=== PATIENT | female | born 1950 | race Caucasian/White ===

== ENCOUNTER 2017-10-08 11:58 | Outpatient (RCR) | payer MEDICARE, SELFPAY ==
--- NOTE | 2017-10-08 17:35 | PT.OTN ---
Addendum entered and electronically signed by Shameka Hicks, PT 10/08/17 17:47: Transition note: On October 05, 2017 our therapy services consisting of Speech, Occupational, and Physical Therapy transitioned from the [employer] electronic documentation system to a new [employer] electronic documentation system.?? All documentation prior to October 05 can be found under [employer] saved data. From October 05 forward all medical record documentation will be in [employer]. Original Note: Current Diagnoses Impingement syndrome of right shoulder (10/08/17) Physical Therapy Treatment Note PT-OP-A Visit Information Start: 10/08/17 11:59 Freq: Status: Active Protocol: Activity Type Activity Date Activity User E-Sign Co-Sign Detail Recorded Client Recorded Date Recorded By Document 10/08/17 12:45 [facility] [email or web address] 10/08/17 17:34 [facility] 10/08/17 12:45 Out-Patient Physical Therapy Visit Information [Visit Information] -Visit Type Treatment Note -Visit Start Time 12:00 -Visit Stop Time 12:45 -Total Visit Minutes 45 -Visit Number 11 -Number of FIELD TRAINING MANAGER Visits 0 [Evaluation Information] -Evaluation Date 08/12/17 PT-OP-C Subjective Start: 10/08/17 11:59 Freq: Status: Active Protocol: Activity Type Activity Date Activity User E-Sign Co-Sign Detail Recorded Client Recorded Date Recorded By Document 10/08/17 12:45 [facility] [email or web address] 10/08/17 17:34 [facility] 10/08/17 12:45 OP-PT Subjective [Patient Comments] -Patient Comments Pt notes that she has no more soreness after painting her fence last week . Overall, she feels like she has improved since evaluation with less pain in the R shoulder. -Patient Reported Progress Improving PT-OP-Q Treatments Start: 10/08/17 11:59 Freq: Status: Active Protocol: Activity Type Activity Date Activity User E-Sign Co-Sign Detail Recorded Client Recorded Date Recorded By Document 10/08/17 12:45 [facility] [email or web address] 10/08/17 17:34 [facility] 10/08/17 12:45 Therapeutic Exercises [Standing Exercises] 4 -Standing Exercise Name Shoulder ER -Side bilateral -Resistance L1 theraband -Reps/Minutes 1x10 3 -Standing Exercise Name Rows -Side bilateral -Resistance L2 theraband -Reps/Minutes 1x20 2 -Standing Exercise Name Shoulder extension -Side bilateral -Resistance L2 theraband -Reps/Minutes 1x20 1 -Standing Exercise Name Shoulder: abduction, scaption, flexion -Side right -Resistance 1 and 2 lbs, L1 band -Reps/Minutes 1 set of 10 each position with each resistance level -Comments 12 minutes Manual Therapy Treatment [Soft Tissue Mobilization] 2 -Body Location Supraspinatus ( R) -Mobilization Type Cross-Friction -Intensity/Depth Moderate -Body Position Sitting -Comments 5 min. 1 -Body Location Biceps brachii (R) -Mobilization Type Rolling -Intensity/Depth Moderate -Body Position Sitting -Comments 5 min. [Joint Mobilizations] 1 -Joint Scapulothoracic (R) -Direction superior, lateral -Grade IV -Body Position Sidelying -Comments 5 min. PT-OP-R Modalities Start: 10/08/17 11:59 Freq: Status: Active Protocol: Activity Type Activity Date Activity User E-Sign Co-Sign Detail Recorded Client Recorded Date Recorded By Document 10/08/17 12:45 [place] [id number] 10/08/17 17:34 [facility] 10/08/17 12:45 Hot Pack/Cold Pack [Treatment] Cold Pack -Location R shoulder -Patient Position Supine -Treatment Duration (minutes) 10 -Patient Tolerance Good -Comments bolster PT-OP-T Assessment and Plan Start: 10/08/17 11:59 Freq: Status: Active Protocol: Activity Type Activity Date Activity User E-Sign Co-Sign Detail Recorded Client Recorded Date Recorded By Document 10/08/17 12:45 [facility] [email or web address] 10/08/17 17:34 [facility] 10/08/17 12:45 Physical Therapy Assessment [Assessment Summary] -Assessment Pt tolerated increased resistance with shoulder strengthening, without c/o pain. Pt appears to fatigue most rapidly with R shoulder flexion. Pt is nearing toward prior level of function, and unless significant worsening of symptoms plan to d/c over the next 2-3 weeks . Physical Therapy Plan [Frequency and Duration] -Frequency of Treatment 2x/Week -Duration of Treatment 4 weeks -Plan of Care Start Date 10/01/17 -Plan of Care End Date 10/22/17 [Next Visit Focus/Plan] -Next Visit Plan continue to progress HEP for shoulder strengthening ( deltoid, RTC, scapular).
--- NOTE | 2017-12-17 09:12 | PT.OPDS ---
Current Diagnoses Impingement syndrome of right shoulder (10/08/17) Provider Visit Care Team Role Provider Type Tabatha Rodríguez MD Attending Provider Physician Specialty: BRICK BURNER Address: [address] [place] [address], [facility] Email: Visit Number Visit Number 11 Discharge Summary PT-OP-C Subjective Start: 10/08/17 11:59 Freq: Status: Active Protocol: Document 12/17/17 09:08 [facility] [address] (Rec: 12/17/17 09:12 [facility] [id number]) OP-PT Subjective Patient Comments Patient Comments Pt did not call back with any complaints post-previous session. PT-OP-T Assessment and Plan Start: 10/08/17 11:59 Freq: Status: Active Protocol: Document 12/17/17 09:08 [facility] [facility] (Rec: 12/17/17 09:12 [facility] [id number]) Physical Therapy Assessment Assessment Summary Assessment Final PT session was on October 08, 2017, pt was nearing her prior level of function. She demonstrated increased tolerance to resistance training, but still fatiguing most rapidly with shoulder flexion due to weakness of the anterior deltoid. Pt was able to perform daily home tasks without complaints, and now has an established HEP that pt is independent in performing and has an excellent understanding of safety with these activities. Pt overall attended 11 physical therapy visits, and did not return for further assessment and treatment beyond October 08, 2017. Objective measures unable to be obtained due to pt not returning for a final assessment. Pt will be discharged to [facility]. HEP. Physical Therapy Plan Discharge Physical Therapy Discharge Reasons No Longer Attending PT
== END 2018-05-09 12:48 ==
LOC: PHYS 11:58
PROVIDERS: Visit Provider Obstetrics & Gynecology
DX: M75.41 Impingement syndrome of right shoulder (principal)
CPT/HCPCS: 97010; 97110; 97140

== ENCOUNTER → 2020-01-27 11:02 | Outpatient (CLI) | payer MEDICARE, SELFPAY ==
--- NOTE | 2020-01-27 11:08 | DI.MRI.S_ITS ---
PROCEDURE: MR ANKLE LT WO CON INDICATIONS: Pain in left foot TECHNIQUE: Noncontrast sagittal T1 spin echo and T2 fast spin echo with fat saturation, axial proton density fast spin echo and T2 fast spin echo with fat saturation, coronal T1 spin echo and T2 fast spin echo with fat saturation through the ankle/hindfoot. COMPARISON: None. FINDINGS: Image quality: Excellent. Bones and joints: No bone marrow contusions or fractures. Incidental unfused accessory navicular noted. No hindfoot coalitions. No osteochondral injuries of the talar dome. No pathologic joint effusions. Medial structures: Posterior tibialis intact. Mild tenosynovitis of the posterior tibialis. Flexor digitorum longus intact. Flexor hallucis longus tendon intact. The posterior tibial neurovascular bundle appears normal within the tarsal tunnel, without extrinsic mass effect. Deltoid ligament complex appears intact. The spring ligament appears intact. Lateral structures: Anterior talofibular ligament intact. Calcaneofibular ligament intact. Posterior talofibular ligament intact. Anterior and posterior tibiofibular ligaments appear intact, as is the intermalleolar ligament. Tibiofibular syndesmosis is normal in width at 2 mm or less. Peroneus longus and brevis tendons appear normal. There is mild peroneal tenosynovitis. Bony peroneal tubercle and retrotrochlear prominence are normal in size. Sinus tarsi demonstrates normal fatty signal, without edema, fibrosis, or cyst formation. Anterior structures: Tibialis anterior intact. Extensor hallucis longus intact. Extensor digitorum longus tendon intact. Dorsal talonavicular ligament appears intact. Posterior and plantar structures: Achilles tendon is intact. Severe thickening, intrasubstance signal changes and adjacent soft tissue edema in keeping with medial band plantar fasciitis. No abductor digiti quinti muscle atrophy to suggest Womack neuropathy. IMPRESSION: Severe medial band plantar fasciitis. Mild posterior tibialis and peroneal tenosynovitis. Dictated by: Dell Rooney M.D. on 01/29/2020 at 8:51 Approved by: Dell Rooney M.D. on 01/29/2020 at 8:56
== END ==
PROVIDERS: PCP Internal Medicine; Referring Provider Podiatrist; Visit Provider Podiatrist
DX: M79.672 Pain in left foot (principal); M72.2 Plantar fascial fibromatosis; G57.62 Lesion of plantar nerve, left lower limb; M65.872 Other synovitis and tenosynovitis, left ankle and foot; R26.2 Difficulty in walking, not elsewhere classified
CPT/HCPCS: 73721

== ENCOUNTER → 2022-03-19 08:07 | Outpatient (CLI) | payer MEDICARE, SELFPAY ==
--- NOTE | 2022-03-19 | DI.CT.S_ITS ---
PROCEDURE: CT HEAD/BRAIN WO CON INDICATIONS: Headache, unspecified TECHNIQUE: Noncontrast 4.5 mm thick angled axial sections acquired from the foramen magnum to the vertex, with coronal and sagittal reformats. For radiation dose reduction, the following was used: automated exposure control, adjustment of mA and/or kV according to patient size. COMPARISON: None. FINDINGS: Image quality: Excellent. CSF spaces: Basal cisterns are patent. No extra-axial fluid collections. The ventricles are symmetric in size and shape. Brain: No intracranial bleeds or masses. There is cerebral volume loss for age, with resultant ventricular and sulcal prominence. There are periventricular and deep white matter chronic small vessel ischemic changes. A remote lacunar infarction versus cysts can be seen involving the left basal ganglia, as on series 2, image 12. There is intracranial internal carotid artery atherosclerosis. Skull and face: Calvarium and visualized facial bones appear intact, without suspicious lesions. Sinuses: Visualized sinuses and mastoids are clear. IMPRESSION: Unremarkable intracranial study for age, without an imaging explanation found for the patient's presenting history of headache. Dictated by: Timo Louise M.D. on 03/19/2022 at 8:45 Approved by: Timo Louise M.D. on 03/19/2022 at 8:46
== END ==
PROVIDERS: PCP Internal Medicine; Referring Provider Internal Medicine; Visit Provider Internal Medicine
DX: R51.9 Headache, unspecified (principal)
CPT/HCPCS: 70450

== ENCOUNTER 2022-03-25 10:58 | Emergency (ER) | payer MEDICARE, SELFPAY ==
[2022-03-25] VITALS (21 sets, daily range): BP systolic 141–189; BP diastolic 65–89; PULSE 62–78; RESP 15–24; TEMP 36.5; O2SAT 96–100; BMI 20.5
--- NOTE | 2022-03-25 12:53 | DI.CT.S_ITS ---
PROCEDURE: CT HEAD/BRAIN WO CON INDICATIONS: PADRON since 03/19/2022, on thinners, left side weakness numbnes TECHNIQUE: Noncontrast 4.5 mm thick angled axial sections acquired from the foramen magnum to the vertex, with coronal and sagittal reformats. For radiation dose reduction, the following was used: automated exposure control, adjustment of mA and/or kV according to patient size. COMPARISON: [facility], CT, CT HEAD/BRAIN WO CON, 03/19/2022, 8:16. FINDINGS: Image quality: Excellent. CSF spaces: Basal cisterns are patent. No extra-axial fluid collections. Ventricles are normal in size and shape. Brain: No midline shift. No intracranial masses or hemorrhage. Ga-white matter interface is normal. 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 Sinuses: Visualized sinuses and mastoids are clear. IMPRESSION: Unremarkable CT brain without intracranial hemorrhage or mass effect. Approved by: Valeriy Bridges M.D. on 03/25/2022 at 13:20
--- NOTE | 2022-03-25 12:56 | DI.CT.S_ITS ---
PROCEDURE: CT ANGIO HEAD AND NECK INDICATIONS: PADRON since 03/19/2022, on thinners, left side weakness numbnes TECHNIQUE: Pre-contrast 4.5 mm thick sections acquired from the foramen magnum to the vertex. After the administration of intravenous contrast, 1 mm thick sections acquired from the aortic arch through the [place]. Post-contrast 4.5 mm thick sections then re-acquired from the foramen magnum to the vertex. 3-dimensional ouumejl-porodfiie-oczwxvnzpk (MIP) and/or volume rendering reformats were acquired of the central intracranial vasculature and neck separately. For radiation dose reduction, the following was used: automated exposure control, adjustment of mA and/or kV according to patient size. COMPARISON: None. FINDINGS: Cerebral CT Angiogram: Internal carotid arteries: No acute findings. Intracranial ICA are patent with no significant stenosis. No occlusion. No aneurysm. Anterior cerebral arteries: Hypoplasia/aplasia of the right A1 MILAN noted. The A2 segment is supplied by a widely patent anterior communicating artery. Remainder of the distal vasculature unremarkable. Middle cerebral arteries: Unremarkable. No significant stenosis. No occlusion. No aneurysm. 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 The P2 segment is supplied by a widely patent posterior communicating artery. Remainder of the distal vasculature unremarkable. Basilar artery: Diminutive basilar artery terminates in the superior cerebellar arteries Vertebral arteries: Unremarkable as visualized. Dural venous sinuses: Unremarkable given phase of enhancement. Other: Arterial phase brain parenchyma is unremarkable. Neck CT Angiogram: Internal carotid arteries: Unremarkable. No significant stenosis. No dissection or occlusion. Common carotid arteries: Unremarkable. No significant stenosis. No dissection or occlusion. External carotid arteries: Unremarkable. No occlusion. Vertebral arteries: Unremarkable. No significant stenosis. No dissection or occlusion. Other: None. Aortic Arch and Mediastinum: The right and left common carotid arteries arise from a common origin from the aortic arch. 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 IMPRESSION: 1. Unremarkable CT angiogram of the head neck without large vessel occlusion, significant stenosis or aneurysm. 2. Anatomic variation described above Note: Any reported proximal ICA stenosis was calculated using NASCET guidelines. Approved by: Valeriy Bridges M.D. on 03/25/2022 at 13:33
--- NOTE | 2022-03-25 12:58 | ED.HA ---
HPI - Headache <Cate Patel [facility] - Last Filed: 03/25/22 19:31> General Chief Complaint: Headache Stated Complaint: hearing sound on her head Time Seen by Provider: 03/25/22 12:43 Mode of arrival: Ambulatory History of Present Illness HPI Narrative: This is a 71-year-old female with history of glaucoma, spontaneous occurrence of atrial fibrillation and has been anticoagulated on Eliquis for the last 2 months who presents to the emergency department today with headache that has been ongoing since 03/19/2022 on the left temporal region of her head. She states that it has gotten worse and turned into a throbbing sensation. She feels her pulse in her brain and denies any vision changes, swallowing difficulty, recent illness, fever, neck pain, trauma, but endorses that she has left-sided numbness and mild weakness in her upper arm and lower leg. She saw her primary care provider Dr. Lia jang on 03/19/2022 who ordered her a noncontrast head CT which was completed here at [facility]. That CT report impression stated unremarkable intracranial steady for age, without an imaging explanation found for the patient's presenting history of headache. Patient reports that she did not take her Eliquis this morning, her dosing regimen is 5 mg b.i.d.. She states that she is tried a muscle relaxer without relief, she has tried Tylenol as well. She denies any incontinence, any neck or back pain. She states that she tried to consult with Neurology this morning but was told she needs a referral from her primary care provider. Lia jang was not available for patient to see in the clinic today and she was instructed to come to the emergency department. Related Data Home Medications Medication Instructions Recorded Confirmed CHOLECALCIFEROL (VITAMIN D3) 2,000 PO QDAY ##0 06/25/10 (Vitamin D3) [CO Q 10 ENZYME] QDAY ##0 06/25/10 [ECHINACEA] QDAY ##0 06/25/10 [FISH OIL] QDAY ##0 06/25/10 [PROBIOTIC] QDAY ##0 06/25/10 Previous Rx's Medication Instructions Recorded ondansetron 4 mg disintegrating 4 mg PO Q8H #10 tabs 03/25/22 tablet Allergies Allergy/AdvReac Type Severity Reaction Status Date / Time Penicillins Allergy Verified 03/25/22 11:10 Review of Systems <ERIC Doty - Last Filed: 03/25/22 19:31> Review of Systems Narrative: Review of systems is negative for acute abnormalities unless otherwise noted in HPI Patient History <ERIC Doty - Last Filed: 03/25/22 19:31> Social History Smoking Status: Unknown if ever smoked Smoking Status: Unknown if ever smoked alcohol intake frequency: holidays/special occasions only Substance Use Type: does not use Exam <ERIC Doty - Last Filed: 03/25/22 19:31> Narrative Exam Narrative: Reviewed vitals signs and nursing notes. General: cooperative, comfortable, in no acute distress, complaining of a headache on the left side HEENT: symmetrical facial expressions, moist mucous membranes, EOMI, PERRLA, Cardiovascular: regular rate and rhythm, no peripheral edema, warm extremities Respiratory: normal effort, able to speak in complete sentences, without wheezing, stridor, or abnormal breath sounds. No retractions or tachypnea. GI: abdomen soft, nontender to palpation, nondistended, without masses, rebound tenderness or exquisite tenderness with exam. MSK: moves all extremities, neurovascularly intact, no gross motor weakness, normal tone, patient complains of dullness to sensation on the left side Skin: brisk capillary refill, without pallor or erythema Neuro: normal speech and cognition, A&O x3, ambulatory, clear speech, dullness to sensation on her left leg and her right arm through her fingertips, patient states she can not squeeze as tight on the left hand as the right hand although I can not tell much in a strength difference on my exam Psych: mental status is grossly normal, congruent mood, normal affect, pleasant and cooperative NIH score of 2 for numbness to left upper arm and left lower leg compared to right. Initial Vital Signs Initial Vital Signs: Vital Signs Temperature 97.7 F 03/25/22 11:08 Pulse Rate 71 03/25/22 11:08 Respiratory Rate 15 03/25/22 11:08 Blood Pressure 180/80 H 03/25/22 11:08 Pulse Oximetry 100 03/25/22 11:08 Oxygen Delivery Method 03/25/22 11:08 <Peg Moya DO - Last Filed: 03/26/22 07:26> Initial Vital Signs Initial Vital Signs: Vital Signs Temperature 97.7 F 03/25/22 11:08 Pulse Rate 71 03/25/22 11:08 Respiratory Rate 15 03/25/22 11:08 Blood Pressure 180/80 H 03/25/22 11:08 Pulse Oximetry 100 03/25/22 11:08 Oxygen Delivery Method 03/25/22 11:08 Scores <ERIC Doty - Last Filed: 03/25/22 19:31> NIH Stroke Scale Level of Conciousness: Alert, keenly responsive Ask month/age: Answers both questions correctly. Open/close eyes, close hand: Performs both tasks correctly Best gaze horizontal: Normal Visual killian: No visual loss Facial palsy: Normal symetrical movement Left arm drift: No drift for full 10 sec Right arm drift: No drift for full 10 sec Left leg drift: No drift for full 5 sec Right leg drift: No drift for full 5 sec Limb ataxia: Absent Sensory on face/arms/legs: Mild to moderate sensory loss, can tell touch Best language: No aphasia, normal Dysarthria: Normal Extinction or inattention: No abnormality Total NIH Stroke scale score: 1 <Peg Moya DO - Last Filed: 03/26/22 07:26> NIH Stroke Scale Total NIH Stroke scale score: 1 Course <ERIC Doty - Last Filed: 03/25/22 19:31> Course Course Narrative: PROCEDURE:? CT HEAD/BRAIN WO CON ? INDICATIONS:? Headache, unspecified ? TECHNIQUE:? Noncontrast 4.5 mm thick angled axial sections acquired from the foramen magnum to the vertex, with coronal and sagittal reformats.? For radiation dose reduction, the following was used:? automated exposure control, adjustment of mA and/or kV according to patient size.? ? COMPARISON:? None. ? FINDINGS:? Image quality:? Excellent.? ? CSF spaces:? Basal cisterns are patent.? No extra-axial fluid collections.? The ventricles are symmetric in size and shape.? ? Brain:? No intracranial bleeds or masses.? There is cerebral volume loss for age, with resultant ventricular and sulcal prominence.? There are periventricular and deep white matter chronic small vessel ischemic changes.? A remote lacunar infarction versus cysts can be seen involving the left basal ganglia, as on series 2, image 12. There is intracranial internal carotid artery atherosclerosis.? ? Skull and face:? Calvarium and visualized facial bones appear intact, without suspicious lesions.? ? Sinuses:? Visualized sinuses and mastoids are clear.? ?? IMPRESSION: ? ? Unremarkable intracranial study for age, without an imaging explanation found for the patient's presenting history of headache. ? ?Dictated by: Timo Louise M.D. on 03/19/2022 at 8:45 ? ? Approved by: Timo Louise M.D. on 03/19/2022 at 8:46 ? Additional Information: 1355, patient states that she does not currently have a headache but she has throbbing on the left side of her temporal region of her head, states that it is pulsating and strong. Orders Ordered: Discontinued Medications Acetaminophen (Acetaminophen 325 Mg Tablet) 975 mg PO NOW ONE Stop: 03/25/22 14:15 Last Admin: 03/25/22 15:56 Dose: 975 mg Documented By: YAMEL Dexamethasone (Dexamethasone 10 Mg/Ml Vial) 10 mg IV NOW ONE Stop: 03/25/22 14:15 Last Admin: 03/25/22 15:57 Dose: 10 mg Documented By: YAMEL Diphenhydramine HCl (Diphenhydramine 50 Mg/Ml Vial) 25 mg IV NOW ONE Stop: 03/25/22 14:15 Last Admin: 03/25/22 15:57 Dose: 25 mg Documented By: YAMEL Sodium Chloride (Normal Saline 0.9%) 1,000 mls @ 1,000 mls/hr IV BOLUS ONE Stop: 03/25/22 13:52 Last Infusion: 03/25/22 16:10 Dose: 0 mls/hr Documented By: Admin: 03/25/22 13:39 Dose: 1,000 mls/hr Documented By: YAMEL Methocarbamol (Methocarbamol 500 Mg Tablet) 500 mg PO NOW ONE Stop: 03/25/22 16:25 Last Admin: 03/25/22 16:31 Dose: 500 mg Documented By: YAMEL(2) Ondansetron HCl (Ondansetron 4 Mg/2 Ml Inj) 4 mg IV NOW ONE Stop: 03/25/22 14:15 Last Admin: 03/25/22 15:57 Dose: 4 mg Documented By: KB Consultations Consultation #1: Reassess patient after her CTs and her MRI and noticed that she was just starting to get her fluid bolus. Was informed that she did not receive any of her medications ordered for her migraine. Patient states she told the nurse that she did not have a headache and her medications were held. Patient states that she still has throbbing in her left temporal region, I discussed with her that these medications were ordered for a complicated migraine with the IV fluid to hopefully find her some relief of her throbbing sensation. CT and MRI are negative for vascular abnormality, ischemia, hemorrhage, aneurysm or other acute finding. Patient endorses that she has left shoulder tension, has been using ice and heat, took a muscle relaxer for this and this has been ongoing for the last week as well. Consultation #2: Reassess patient after her fluid bolus and medications, states that she feels mildly better, states that she still hears pulsations in the left side of her head but denies it being a strong as it was. Her blood pressure has now come down to 144/69. Vital Signs Vital signs: Vital Signs - 8 hr 03/25/22 13:18 03/25/22 13:21 03/25/22 13:21 Pulse Rate 70 68 Respiratory Rate 16 Blood Pressure 189/88 H Pulse Oximetry 99 100 03/25/22 13:26 03/25/22 13:26 03/25/22 13:30 Pulse Rate 70 Respiratory Rate 20 Blood Pressure 183/88 H 182/89 H Pulse Oximetry 100 03/25/22 13:30 03/25/22 13:32 03/25/22 13:32 Pulse Rate 65 66 Respiratory Rate 20 15 Blood Pressure 183/73 H Pulse Oximetry 100 100 03/25/22 13:51 03/25/22 13:51 03/25/22 14:00 Pulse Rate 77 Respiratory Rate 18 Blood Pressure 178/76 H 172/75 H Pulse Oximetry 97 03/25/22 14:00 03/25/22 15:03 03/25/22 15:07 Pulse Rate 69 78 Respiratory Rate 20 20 Blood Pressure Pulse Oximetry 100 98 99 03/25/22 15:07 03/25/22 15:15 03/25/22 15:15 Pulse Rate 67 Respiratory Rate 20 Blood Pressure 184/81 H 166/72 H Pulse Oximetry 99 03/25/22 15:30 03/25/22 15:30 03/25/22 15:45 Pulse Rate 67 Respiratory Rate 20 Blood Pressure 181/73 H 167/73 H Pulse Oximetry 100 03/25/22 15:45 03/25/22 16:02 03/25/22 16:05 Pulse Rate 63 72 66 Respiratory Rate 20 24 Blood Pressure Pulse Oximetry 100 98 100 03/25/22 16:05 03/25/22 16:15 03/25/22 16:15 Pulse Rate 67 Respiratory Rate 20 Blood Pressure 178/77 H 157/65 H Pulse Oximetry 100 03/25/22 16:30 03/25/22 16:30 03/25/22 16:45 Pulse Rate 69 62 Respiratory Rate 20 20 Blood Pressure 156/73 H Pulse Oximetry 100 100 03/25/22 16:45 03/25/22 17:00 03/25/22 17:00 Pulse Rate 62 Respiratory Rate 22 Blood Pressure 145/68 H 141/66 H Pulse Oximetry 99 03/25/22 17:15 03/25/22 17:15 03/25/22 17:30 Pulse Rate 69 Respiratory Rate 20 Blood Pressure 141/67 H 144/69 H Pulse Oximetry 96 03/25/22 17:30 Pulse Rate 62 Respiratory Rate 20 Blood Pressure Pulse Oximetry 97 <Peg Moya, - Last Filed: 03/26/22 07:26> Orders Ordered: Discontinued Medications Acetaminophen (Acetaminophen 325 Mg Tablet) 975 mg PO NOW ONE Stop: 03/25/22 14:15 Last Admin: 03/25/22 15:56 Dose: 975 mg Documented By: YAMEL Dexamethasone (Dexamethasone 10 Mg/Ml Vial) 10 mg IV NOW ONE Stop: 03/25/22 14:15 Last Admin: 03/25/22 15:57 Dose: 10 mg Documented By: YAMEL Diphenhydramine HCl (Diphenhydramine 50 Mg/Ml Vial) 25 mg IV NOW ONE Stop: 03/25/22 14:15 Last Admin: 03/25/22 15:57 Dose: 25 mg Documented By: YAMEL Sodium Chloride (Normal Saline 0.9%) 1,000 mls @ 1,000 mls/hr IV BOLUS ONE Stop: 03/25/22 13:52 Last Infusion: 03/25/22 16:10 Dose: 0 mls/hr Documented By: Admin: 03/25/22 13:39 Dose: 1,000 mls/hr Documented By: YAMEL Methocarbamol (Methocarbamol 500 Mg Tablet) 500 mg PO NOW ONE Stop: 03/25/22 16:25 Last Admin: 03/25/22 16:31 Dose: 500 mg Documented By: YAMEL(2) Ondansetron HCl (Ondansetron 4 Mg/2 Ml Inj) 4 mg IV NOW ONE Stop: 03/25/22 14:15 Last Admin: 03/25/22 15:57 Dose: 4 mg Documented By: YAMEL Vital Signs Vital signs: Vital Signs - 8 hr 03/25/22 13:18 03/25/22 13:21 03/25/22 13:21 Pulse Rate 70 68 Respiratory Rate 16 Blood Pressure 189/88 H Pulse Oximetry 99 100 03/25/22 13:26 03/25/22 13:26 03/25/22 13:30 Pulse Rate 70 Respiratory Rate 20 Blood Pressure 183/88 H 182/89 H Pulse Oximetry 100 03/25/22 13:30 03/25/22 13:32 03/25/22 13:32 Pulse Rate 65 66 Respiratory Rate 20 15 Blood Pressure 183/73 H Pulse Oximetry 100 100 03/25/22 13:51 03/25/22 13:51 03/25/22 14:00 Pulse Rate 77 Respiratory Rate 18 Blood Pressure 178/76 H 172/75 H Pulse Oximetry 97 03/25/22 14:00 03/25/22 15:03 03/25/22 15:07 Pulse Rate 69 78 Respiratory Rate 20 20 Blood Pressure Pulse Oximetry 100 98 99 03/25/22 15:07 03/25/22 15:15 03/25/22 15:15 Pulse Rate 67 Respiratory Rate 20 Blood Pressure 184/81 H 166/72 H Pulse Oximetry 99 03/25/22 15:30 03/25/22 15:30 03/25/22 15:45 Pulse Rate 67 Respiratory Rate 20 Blood Pressure 181/73 H 167/73 H Pulse Oximetry 100 03/25/22 15:45 03/25/22 16:02 03/25/22 16:05 Pulse Rate 63 72 66 Respiratory Rate 20 24 Blood Pressure Pulse Oximetry 100 98 100 03/25/22 16:05 03/25/22 16:15 03/25/22 16:15 Pulse Rate 67 Respiratory Rate 20 Blood Pressure 178/77 H 157/65 H Pulse Oximetry 100 03/25/22 16:30 03/25/22 16:30 03/25/22 16:45 Pulse Rate 69 62 Respiratory Rate 20 20 Blood Pressure 156/73 H Pulse Oximetry 100 100 03/25/22 16:45 03/25/22 17:00 03/25/22 17:00 Pulse Rate 62 Respiratory Rate 22 Blood Pressure 145/68 H 141/66 H Pulse Oximetry 99 03/25/22 17:15 03/25/22 17:15 03/25/22 17:30 Pulse Rate 69 Respiratory Rate 20 Blood Pressure 141/67 H 144/69 H Pulse Oximetry 96 03/25/22 17:30 Pulse Rate 62 Respiratory Rate 20 Blood Pressure Pulse Oximetry 97 MDM - Headache <Cate Patle, [facility] - Last Filed: 03/25/22 19:31> Lab Data Result diagrams: 03/25/22 13:20 03/25/22 13:20 Labs: Lab Results 03/25/22 03/25/22 03/25/22 Range/Units 13:20 13:20 13:20 WBC 9.5 (4.5-11.0) X10^3/uL RBC 4.64 (4.0-5.2) X10^6/uL Hgb 14.9 (12.0-16.0) g/dL Hct 44.0 (36-46) % MCV 94.8 (80-100) fL MCH 32.0 (26-34) PG MCHC 33.8 (30-36) % RDW 12.7 (11.6-14.8) % Plt Count 298 (150-400) X10^3/uL Neut % (Auto) 76.4 H (50-75) % Lymph % (Auto) 17.9 L (25-40) % [place] % (Auto) 3.9 (3-14) % Eos % (Auto) 0.7 L (2-4) % Baso % (Auto) 1.1 (0-2) % Neut # (Auto) 7200 H (8028-8039) /uL Lymph # (Auto) 1700 (4771-6032) /uL [place] # (Auto) 400 (0-900) /uL Eos # (Auto) 100 (0-450) /uL Baso # (Auto) 100 (0-100) /uL ESR (0-20) MM/HR PT 12.2 (10.1-12.7) SECONDS INR 1.1 (0.9-1.3) APTT 34 (26-36) SECONDS Sodium 137 (137-145) mmol/L Potassium 5.2 H (3.4-5.1) mmol/L Chloride 100 (98-107) mmol/L Carbon Dioxide 27 (22-32) mmol/L BUN 14 (7-17) mg/dL Creatinine 0.80 (0.52-1.04) mg/dL Estimated GFR > 60 (>60) mL/min BUN/Creatinine Ratio 17.5 (6-22) Glucose 119 H (80-110) mg/dL Lactate (0.7-2.1) mmol/L Calcium 9.4 (8.4-10.2) mg/dL Magnesium (1.6-2.3) mg/dL Total Bilirubin 1.7 H (0.2-1.3) mg/dL AST 54 H (14-36) IU/L ALT 45 H (<35) IU/L Alkaline Phosphatase 97 (38-126) U/L C-Reactive Protein (<1.0) mg/dL Total Protein 9.0 H (6.3-8.2) g/dL Albumin 4.9 (3.5-5.0) g/dL Globulin 4.1 (1.7-4.1) g/dL Albumin/Globulin Ratio 1.2 (1.0-2.8) Procalcitonin (<0.5) ng/mL Urine Color Urine Appearance Urine pH (4.5-8.0) Ur Specific [place] (1.000-1.035) Urine Protein (Negative) Urine Glucose (UA) (Negative) g/dL Urine Ketones (NEGATIVE) Urine Occult Blood (Negative) Urine Nitrate (Negative) Urine Bilirubin (NEGATIVE) Urine Urobilinogen (0.2) E.U./dL Ur Leukocyte Esterase (NEGATIVE) Urine RBC (0-5/HPF) Urine WBC (0-5/HPF) Urine Bacteria (None) Ur Culture Indicated? Micro UA Comment SARS-CoV-2 (PCR) (Negative) 03/25/22 03/25/22 03/25/22 Range/Units 13:20 13:20 13:20 WBC (4.5-11.0) X10^3/uL RBC (4.0-5.2) X10^6/uL Hgb (12.0-16.0) g/dL Hct (36-46) % MCV (80-100) fL MCH (26-34) PG MCHC (30-36) % RDW (11.6-14.8) % Plt Count (150-400) X10^3/uL Neut % (Auto) (50-75) % Lymph % (Auto) (25-40) % [place] % (Auto) (3-14) % Eos % (Auto) (2-4) % Baso % (Auto) (0-2) % Neut # (Auto) (2171-2340) /uL Lymph # (Auto) (0361-2561) /uL [place] # (Auto) (0-900) /uL Eos # (Auto) (0-450) /uL Baso # (Auto) (0-100) /uL ESR 5 (0-20) MM/HR PT (10.1-12.7) SECONDS INR (0.9-1.3) APTT (26-36) SECONDS Sodium (137-145) mmol/L Potassium (3.4-5.1) mmol/L Chloride (98-107) mmol/L Carbon Dioxide (22-32) mmol/L BUN (7-17) mg/dL Creatinine (0.52-1.04) mg/dL Estimated GFR (>60) mL/min BUN/Creatinine Ratio (6-22) Glucose (80-110) mg/dL Lactate (0.7-2.1) mmol/L Calcium (8.4-10.2) mg/dL Magnesium 2.1 (1.6-2.3) mg/dL Total Bilirubin (0.2-1.3) mg/dL AST (14-36) IU/L ALT (<35) IU/L Alkaline Phosphatase (38-126) U/L C-Reactive Protein (<1.0) mg/dL Total Protein (6.3-8.2) g/dL Albumin (3.5-5.0) g/dL Globulin (1.7-4.1) g/dL Albumin/Globulin Ratio (1.0-2.8) Procalcitonin (<0.5) ng/mL Urine Color Urine Appearance Urine pH (4.5-8.0) Ur Specific [place] (1.000-1.035) Urine Protein (Negative) Urine Glucose (UA) (Negative) g/dL Urine Ketones (NEGATIVE) Urine Occult Blood (Negative) Urine Nitrate (Negative) Urine Bilirubin (NEGATIVE) Urine Urobilinogen (0.2) E.U./dL Ur Leukocyte Esterase (NEGATIVE) Urine RBC (0-5/HPF) Urine WBC (0-5/HPF) Urine Bacteria (None) Ur Culture Indicated? Micro UA Comment SARS-CoV-2 (PCR) Negative (Negative) 03/25/22 03/25/22 03/25/22 Range/Units 13:20 13:20 14:19 WBC (4.5-11.0) X10^3/uL RBC (4.0-5.2) X10^6/uL Hgb (12.0-16.0) g/dL Hct (36-46) % MCV (80-100) fL MCH (26-34) PG MCHC (30-36) % RDW (11.6-14.8) % Plt Count (150-400) X10^3/uL Neut % (Auto) (50-75) % Lymph % (Auto) (25-40) % [place] % (Auto) (3-14) % Eos % (Auto) (2-4) % Baso % (Auto) (0-2) % Neut # (Auto) (5004-5471) /uL Lymph # (Auto) (4928-9324) /uL [place] # (Auto) (0-900) /uL Eos # (Auto) (0-450) /uL Baso # (Auto) (0-100) /uL ESR (0-20) MM/HR PT (10.1-12.7) SECONDS INR (0.9-1.3) APTT (26-36) SECONDS Sodium (137-145) mmol/L Potassium (3.4-5.1) mmol/L Chloride (98-107) mmol/L Carbon Dioxide (22-32) mmol/L BUN (7-17) mg/dL Creatinine (0.52-1.04) mg/dL Estimated GFR (>60) mL/min BUN/Creatinine Ratio (6-22) Glucose (80-110) mg/dL Lactate 1.3 (0.7-2.1) mmol/L Calcium (8.4-10.2) mg/dL Magnesium (1.6-2.3) mg/dL Total Bilirubin (0.2-1.3) mg/dL AST (14-36) IU/L ALT (<35) IU/L Alkaline Phosphatase (38-126) U/L C-Reactive Protein < 0.5 (<1.0) mg/dL Total Protein (6.3-8.2) g/dL Albumin (3.5-5.0) g/dL Globulin (1.7-4.1) g/dL Albumin/Globulin Ratio (1.0-2.8) Procalcitonin < 0.03 (<0.5) ng/mL Urine Color Yellow Urine Appearance Clear Urine pH 7.0 (4.5-8.0) Ur Specific [place] <=1.005 (1.000-1.035) Urine Protein Negative (Negative) Urine Glucose (UA) Negative (Negative) g/dL Urine Ketones Negative (NEGATIVE) Urine Occult Blood Trace-lysed (Negative) Urine Nitrate Negative (Negative) Urine Bilirubin Negative (NEGATIVE) Urine Urobilinogen 0.2 (0.2) E.U./dL Ur Leukocyte Esterase Negative (NEGATIVE) Urine RBC None seen (0-5/HPF) Urine WBC None seen (0-5/HPF) Urine Bacteria None seen (None) Ur Culture Indicated? Cult not indicated Micro UA Comment Microscopic normal SARS-CoV-2 (PCR) (Negative) Imaging Data CT scan - head: Radiologist's Impression: PROCEDURE:? CT HEAD/BRAIN WO CON ? INDICATIONS:? PADRON since 03/19/2022, on thinners, left side weakness numbnes ? TECHNIQUE:? Noncontrast 4.5 mm thick angled axial sections acquired from the foramen magnum to the vertex, with coronal and sagittal reformats.? For radiation dose reduction, the following was used:? automated exposure control, adjustment of mA and/or kV according to patient size.? ? COMPARISON:? [facility], CT, CT HEAD/BRAIN WO CON, 03/19/2022, 8:16. ? FINDINGS:? Image quality:? Excellent.? ? CSF spaces:? Basal cisterns are patent.? No extra-axial fluid collections.? Ventricles are normal in size and shape.? ? Brain:? No midline shift.? No intracranial masses or hemorrhage.? Ga-white matter interface is normal.? 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 Skull and face:? Calvarium and visualized facial bones are intact, without suspicious lesions.? ? Sinuses:? Visualized sinuses and mastoids are clear.? ? IMPRESSION:? ? Unremarkable CT brain without intracranial hemorrhage or mass effect. ? ? ? Approved by: Valeriy Bridges M.D. on 03/25/2022 at 13:20? CTA - brain/neck: Radiologist's Impression: PROCEDURE:? CT ANGIO HEAD AND NECK ? INDICATIONS:? PADRON since 03/19/2022, on thinners, left side weakness numbnes ? TECHNIQUE:? Pre-contrast 4.5 mm thick sections acquired from the foramen magnum to the vertex.? After the administration of intravenous contrast, 1 mm thick sections acquired from the aortic arch through the [place] of [place].? Post-contrast 4.5 mm thick sections then re-acquired from the foramen magnum to the vertex.? 3-dimensional sdygfys-hmjfozdqk-rwgkshjvpw (MIP) and/or volume rendering reformats were acquired of the central intracranial vasculature and neck separately. For radiation dose reduction, the following was used:? automated exposure control, adjustment of mA and/or kV according to patient size.? ? COMPARISON:? None. ? FINDINGS: ? Cerebral CT Angiogram: ? Internal carotid arteries:? No acute findings.? Intracranial ICA are patent with no significant stenosis.? No occlusion.? No aneurysm. ? Anterior cerebral arteries:? Hypoplasia/aplasia of the right A1 MILAN noted. The A2 segment is supplied by a widely patent anterior communicating artery. Remainder of the distal vasculature unremarkable. ? Middle cerebral arteries:? Unremarkable.? No significant stenosis.? No occlusion.? No aneurysm. ? Posterior cerebral arteries:? 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 The P2 segment is supplied by a widely patent posterior communicating artery. Remainder of the distal vasculature unremarkable. ? Basilar artery:? Diminutive basilar artery terminates in the superior cerebellar arteries ? Vertebral arteries:? Unremarkable as visualized. ? Dural venous sinuses:? Unremarkable given phase of enhancement. ? Other:? Arterial phase brain parenchyma is unremarkable. ? Neck CT Angiogram: ? Internal carotid arteries:? Unremarkable.? No significant stenosis.? No dissection or occlusion. ? Common carotid arteries:? Unremarkable.? No significant stenosis.? No dissection or occlusion. ? External carotid arteries:? Unremarkable.? No occlusion. ? Vertebral arteries:? Unremarkable.? No significant stenosis.? No dissection or occlusion. ? Other: None. ? Aortic Arch and Mediastinum:? The right and left common carotid arteries arise from a common origin from the aortic arch.? 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 ? IMPRESSION: ? 1. Unremarkable CT angiogram of the head neck without large vessel occlusion, significant stenosis or aneurysm. ? 2. Anatomic variation described above ? ? Note: Any reported proximal ICA stenosis was calculated using NASCET guidelines.? Approved by: Valeriy Bridges M.D. on 03/25/2022 at 13:33? Brain MRI: Radiologist's Impression: PROCEDURE:? MR HEAD/BRAIN WO CON ? INDICATIONS:? left temporal throbbing x1 week, numbness on LT ? TECHNIQUE:? Noncontrast axial T1 spin echo, axial T2 fast spin echo, sagittal and axial FLAIR, coronal T2 fast spin echo, axial gradient echo, axial diffusion and ADC through the brain.? ? COMPARISON:? None. ? FINDINGS:? Image quality:? Excellent.? ? CSF Spaces:? Basal cisterns are patent.? No extra-axial fluid collections.? Ventricles are normal in size and shape.? ? Brain:? No intracranial masses or hemorrhage.? Ga/white matter interface is normal.? Brainstem appears normal.? Diffusion-weighted images demonstrate no acute infarct.? Normal intravascular flow voids are present.? And small left choroid fissure cyst noted unchanged ? Skull and face:? Calvarium has normal marrow signal.? Orbits appear normal.? ? Sinuses:? Sinuses and mastoids are clear.? ? IMPRESSION:? ? Unremarkable MRI of the brain without acute infarct, hemorrhage or mass lesion ? ? ? Approved by: Valeriy Bridges M.D. on 03/25/2022 at 14:15? US - abdomen: Radiologist's Impression: PROCEDURE: US ABDOMEN LIMITED ? INDICATIONS:? gallstones? elevated T.bili ? TECHNIQUE:? Real-time focused scanning was performed of the abdomen, with image documentation.? ? COMPARISON:? None. ? FINDINGS:? The liver is normal in size and demonstrates no focal lesions. ? No findings of gallstones or sludge are seen.? The gallbladder wall is not thickened, measuring 3 mm or less.? No specific pericholecystic fluid is seen.? The sonographic Loredo sign is negative. ? There is no biliary dilatation, the common bile duct measures 2-3 mm.? ? No significant pancreatic abnormality is seen on these images.? ? The visualized right kidney is unremarkable, without hydronephrosis. ? Overall scan quality is limited by prominent bowel gas and small acoustic windows between the ribs. ? ? IMPRESSION:? The gallbladder demonstrates a normal sonographic appearance. No biliary dilatation is seen. ? ? Dictated by: Timo Louise M.D. on 03/25/2022 at 16:14 ? ? Approved by: Timo Louise M.D. on 03/25/2022 at 16:15 ? ECG Data Interpretation: EKG independently reviewed by myself at 1330 reveals normal sinus rhythm at 62 bpm with regular axis and intervals. No STEMI, ST segment changes, arrhythmia, or acute ischemic changes. MDM Narrative Medical decision making narrative: This is a 71-year-old female presents to the emergency department with ongoing throbbing sensation in the left side of her head/temporal region since 03/19/2022. Patient is anticoagulated on Eliquis, has been for the last 2 months for paroxysmal atrial fibrillation which has occurred 2 or 3 times in her lifetime. Patient saw her primary care provider Dr. Lia jang who ordered a head CT without contrast on 03/19/2022 which did not show any acute changes, hemorrhage, or other abnormality. Patient states she was unable to get into her primary care provider. She denies any other symptoms like abdominal pain, vomiting, fever, chills, sore throat, respiratory illness or other symptom. 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 Without any other focal neuro deficits. She had a CT of her head and brain without contrast that was negative for acute abnormalities, a CTA of her head and neck was completed today which does not demonstrate any large vessel occlusion, any significant stenosis or aneurysm. A brain MRI was then completed showing an unremarkable MRI of the brain without acute infarct, hemorrhage, or mass lesion. Patient states that she still has these symptoms ongoing. She did not receive the medications order for her complicated migraine because she told the nurse she did not have a headache and the nurse withheld these medications. When I became aware of this, I described the reason for treating today with those medications to see if she had any relief from her symptoms as we could likely call this a complicated migraine, tension migraine or similar if she responded to the medications. She received 1 L of lactated Ringer's, 4 mg of Zofran, 10 mg of IV dexamethasone, and 975 mg of Tylenol. She did not received Toradol if she is anticoagulated. She was hypertensive during her 1st few hours today, systolic blood pressures average around 180, she did not have any vision changes, or new changes while she was here. After her medications were given, blood pressure was rechecked and she came down to 167 systolic and reported that she started to feel better. Discuss that patient's symptoms might not be related to her brain, neck at all and it could be related to any other process including viral infection. She does not have any upper respiratory symptoms, no focal findings on her lab work to suggest this. She does not have any leukocytosis, anemia, she does have a left shift however which is mild, her potassium was elevated 2 puff 5.2 but patient states she has not drank any water today and I presume that she was hemoconcentrated when she arrived. Her total bilirubin was 1.7, there were no priors to compare to but this was the only number of concern with her mildly elevated AST and ALT for possible gallbladder etiology. Her CRP was negative, her procalcitonin was 0.03, her urine was negative for wbc's, blood and bacteria. COVID PCR is negative. I encouraged patient to follow-up with Dr. Jang regarding her lab work, hypertension, symptoms, and discussed that this might not be a Neurology problem after all. All of her images today were without acute abnormality. Limited abdominal ultrasound shows a normal sonographic appearance without biliary dilatation, gallbladder wall 3 mm left. Common bile duct measures 2-3 mm. Headache considerations include, but not limited to: Subarachnoid hemorrhage, but unlikely as patient denies sudden onset of pain, not worst of life, or neck pain Meningitis considered, but thought unlikely given lack of Brudzinski's, Kernig's sign, altered mental status or fever Giant cell arteritis considered, but thought unlikely given lack of unilateral findings, pain in [employer], vision change HTN Emergency considered. Other serious diagnoses considered unlikely given lack of red flag findings such as sudden onset, increasing frequency, immunocompromise, systemic signs (fever, chills, stiff neck, or rash), focal neurologic findings, trauma, blood thinners, etc. No peritoneal signs on abdominal exam. Patient remains p.o. tolerant. Serial abdominal exam without increase in abdominal pain. Given history and exam, low suspicion for acute abdominal process, such as acute cholecystitis, pancreatitis, perforated viscus, atypical appendicitis, colitis, diverticulitis or torsion. Extensive conversation about ER return precautions and need for close follow-up. Differential diagnosis include subarachnoid hemorrhage, aneurysm, complicated migraine, tension migraine, vasculitis, viral infection, bacterial infection, inflammatory complication, atypical migraine. <Peg Moya, DO - Last Filed: 03/26/22 07:26> Lab Data Labs: Lab Results 03/25/22 03/25/22 03/25/22 Range/Units 13:20 13:20 13:20 WBC 9.5 (4.5-11.0) X10^3/uL RBC 4.64 (4.0-5.2) X10^6/uL Hgb 14.9 (12.0-16.0) g/dL Hct 44.0 (36-46) % MCV 94.8 (80-100) fL MCH 32.0 (26-34) PG MCHC 33.8 (30-36) % RDW 12.7 (11.6-14.8) % Plt Count 298 (150-400) X10^3/uL Neut % (Auto) 76.4 H (50-75) % Lymph % (Auto) 17.9 L (25-40) % [place] % (Auto) 3.9 (3-14) % Eos % (Auto) 0.7 L (2-4) % Baso % (Auto) 1.1 (0-2) % Neut # (Auto) 7200 H (4041-5157) /uL Lymph # (Auto) 1700 (4866-9202) /uL [place] # (Auto) 400 (0-900) /uL Eos # (Auto) 100 (0-450) /uL Baso # (Auto) 100 (0-100) /uL ESR (0-20) MM/HR PT 12.2 (10.1-12.7) SECONDS INR 1.1 (0.9-1.3) APTT 34 (26-36) SECONDS Sodium 137 (137-145) mmol/L Potassium 5.2 H (3.4-5.1) mmol/L Chloride 100 (98-107) mmol/L Carbon Dioxide 27 (22-32) mmol/L BUN 14 (7-17) mg/dL Creatinine 0.80 (0.52-1.04) mg/dL Estimated GFR > 60 (>60) mL/min BUN/Creatinine Ratio 17.5 (6-22) Glucose 119 H (80-110) mg/dL Lactate (0.7-2.1) mmol/L Calcium 9.4 (8.4-10.2) mg/dL Magnesium (1.6-2.3) mg/dL Total Bilirubin 1.7 H (0.2-1.3) mg/dL AST 54 H (14-36) IU/L ALT 45 H (<35) IU/L Alkaline Phosphatase 97 (38-126) U/L C-Reactive Protein (<1.0) mg/dL Total Protein 9.0 H (6.3-8.2) g/dL Albumin 4.9 (3.5-5.0) g/dL Globulin 4.1 (1.7-4.1) g/dL Albumin/Globulin Ratio 1.2 (1.0-2.8) Procalcitonin (<0.5) ng/mL Urine Color Urine Appearance Urine pH (4.5-8.0) Ur Specific [place] (1.000-1.035) Urine Protein (Negative) Urine Glucose (UA) (Negative) g/dL Urine Ketones (NEGATIVE) Urine Occult Blood (Negative) Urine Nitrate (Negative) Urine Bilirubin (NEGATIVE) Urine Urobilinogen (0.2) E.U./dL Ur Leukocyte Esterase (NEGATIVE) Urine RBC (0-5/HPF) Urine WBC (0-5/HPF) Urine Bacteria (None) Ur Culture Indicated? Micro UA Comment SARS-CoV-2 (PCR) (Negative) 1003/25/22 03/25/22 Range/Units 13:20 13:20 13:20 WBC (4.5-11.0) X10^3/uL RBC (4.0-5.2) X10^6/uL Hgb (12.0-16.0) g/dL Hct (36-46) % MCV (80-100) fL MCH (26-34) PG MCHC (30-36) % RDW (11.6-14.8) % Plt Count (150-400) X10^3/uL Neut % (Auto) (50-75) % Lymph % (Auto) (25-40) % [place] % (Auto) (3-14) % Eos % (Auto) (2-4) % Baso % (Auto) (0-2) % Neut # (Auto) (1395-7426) /uL Lymph # (Auto) (5666-6954) /uL [place] # (Auto) (0-900) /uL Eos # (Auto) (0-450) /uL Baso # (Auto) (0-100) /uL ESR 5 (0-20) MM/HR PT (10.1-12.7) SECONDS INR (0.9-1.3) APTT (26-36) SECONDS Sodium (137-145) mmol/L Potassium (3.4-5.1) mmol/L Chloride (98-107) mmol/L Carbon Dioxide (22-32) mmol/L BUN (7-17) mg/dL Creatinine (0.52-1.04) mg/dL Estimated GFR (>60) mL/min BUN/Creatinine Ratio (6-22) Glucose (80-110) mg/dL Lactate (0.7-2.1) mmol/L Calcium (8.4-10.2) mg/dL Magnesium 2.1 (1.6-2.3) mg/dL Total Bilirubin (0.2-1.3) mg/dL AST (14-36) IU/L ALT (<35) IU/L Alkaline Phosphatase (38-126) U/L C-Reactive Protein (<1.0) mg/dL Total Protein (6.3-8.2) g/dL Albumin (3.5-5.0) g/dL Globulin (1.7-4.1) g/dL Albumin/Globulin Ratio (1.0-2.8) Procalcitonin (<0.5) ng/mL Urine Color Urine Appearance Urine pH (4.5-8.0) Ur Specific [place] (1.000-1.035) Urine Protein (Negative) Urine Glucose (UA) (Negative) g/dL Urine Ketones (NEGATIVE) Urine Occult Blood (Negative) Urine Nitrate (Negative) Urine Bilirubin (NEGATIVE) Urine Urobilinogen (0.2) E.U./dL Ur Leukocyte Esterase (NEGATIVE) Urine RBC (0-5/HPF) Urine WBC (0-5/HPF) Urine Bacteria (None) Ur Culture Indicated? Micro UA Comment SARS-CoV-2 (PCR) Negative (Negative) 03/25/22 03/25/22 03/25/22 Range/Units 13:20 13:20 14:19 WBC (4.5-11.0) X10^3/uL RBC (4.0-5.2) X10^6/uL Hgb (12.0-16.0) g/dL Hct (36-46) % MCV (80-100) fL MCH (26-34) PG MCHC (30-36) % RDW (11.6-14.8) % Plt Count (150-400) X10^3/uL Neut % (Auto) (50-75) % Lymph % (Auto) (25-40) % [place] % (Auto) (3-14) % Eos % (Auto) (2-4) % Baso % (Auto) (0-2) % Neut # (Auto) (0725-0365) /uL Lymph # (Auto) (9573-9833) /uL [place] # (Auto) (0-900) /uL Eos # (Auto) (0-450) /uL Baso # (Auto) (0-100) /uL ESR (0-20) MM/HR PT (10.1-12.7) SECONDS INR (0.9-1.3) APTT (26-36) SECONDS Sodium (137-145) mmol/L Potassium (3.4-5.1) mmol/L Chloride (98-107) mmol/L Carbon Dioxide (22-32) mmol/L BUN (7-17) mg/dL Creatinine (0.52-1.04) mg/dL Estimated GFR (>60) mL/min BUN/Creatinine Ratio (6-22) Glucose (80-110) mg/dL Lactate 1.3 (0.7-2.1) mmol/L Calcium (8.4-10.2) mg/dL Magnesium (1.6-2.3) mg/dL Total Bilirubin (0.2-1.3) mg/dL AST (14-36) IU/L ALT (<35) IU/L Alkaline Phosphatase (38-126) U/L C-Reactive Protein < 0.5 (<1.0) mg/dL Total Protein (6.3-8.2) g/dL Albumin (3.5-5.0) g/dL Globulin (1.7-4.1) g/dL Albumin/Globulin Ratio (1.0-2.8) Procalcitonin < 0.03 (<0.5) ng/mL Urine Color Yellow Urine Appearance Clear Urine pH 7.0 (4.5-8.0) Ur Specific [place] <=1.005 (1.000-1.035) Urine Protein Negative (Negative) Urine Glucose (UA) Negative (Negative) g/dL Urine Ketones Negative (NEGATIVE) Urine Occult Blood Trace-lysed (Negative) Urine Nitrate Negative (Negative) Urine Bilirubin Negative (NEGATIVE) Urine Urobilinogen 0.2 (0.2) E.U./dL Ur Leukocyte Esterase Negative (NEGATIVE) Urine RBC None seen (0-5/HPF) Urine WBC None seen (0-5/HPF) Urine Bacteria None seen (None) Ur Culture Indicated? Cult not indicated Micro UA Comment Microscopic normal SARS-CoV-2 (PCR) (Negative) Discharge Plan Departure Patient Disposition: Home Clinical Impression: Anticoagulant long-term use, History of atrial fibrillation, Atypical migraine HTN (hypertension) Qualifiers: Hypertension type: unspecified Qualified Code(s): I10 - Essential (primary) hypertension Instructions: Tension Headache, Migraine -- Adult, High Blood Pressure, DI for Hormonal and Tension Headaches Activity Restrictions/Additional Instructions: *You have been diagnosed with [ ] Please call Dr. Jang's office and schedule a follow-up appointment from your visit today at the soonest available. Please discuss your blood pressure, this ongoing sensation, ask for a neurology referral if it will be helpful, and potentially a recheck of your lab work. Please stay hydrated, if this sensation returns, please take 975 mg of Tylenol, you can do this up to 3 times a day, take 4 mg of Zofran and 25 mg of Benadryl followed by a few cups of water and rest. See if this is helpful. Add a muscle relaxer for shoulder tension, heat, light massage and see if any of this helps your sensation. Thank you for your patients today, after we had all those images, I am not sure if this is a Neurology problem or if this is a symptom from something else. I hope that you start feeling better soon. There is a few neurology providers in [place] related to [facility], I have put their names below. Your abdominal ultrasound does not show any gallstones or other acute inflammatory changes. I hope that you start feeling better soon. *What to do: *Please continue to take your regular medications as directed. [ x] New medication prescriptions sent to your pharmacy: [[facility] ] [ ] New medication written as a paper prescription [ ] No new medications given *Please follow up with your primary care provider in 2-3 days, call for an appointment. Let them know you were seen in the Emergency Department and that we asked that you be seen for follow-up. We will electronically transmit a record of today's note if your PCP is in our system *If you do not have a primary care provider please contact [phone] to establish care with one of the [facility] primary care providers. *Return to Emergency Department if you should have any new, worsening, or concerning symptoms, such as [fever greater than 101F, chills, worsening pain, persistent vomiting or other bothersome symptoms]. Prescriptions: New ondansetron 4 mg tablet,disintegrating 4 mg PO Q8H Qty: 10 0RF No Action CHOLECALCIFEROL (VITAMIN D3) (Vitamin D3) 2,000 PO QDAY Qty: 0 [ECHINACEA] QDAY Qty: 0 [FISH OIL] QDAY Qty: 0 [CO Q 10 ENZYME] QDAY Qty: 0 [PROBIOTIC] QDAY Qty: 0 Referrals: Karlie Saleh MD [Non-Staff] - Kavita Styles DO [Non-Staff] - Romain Woodruff MD [Non-Staff] - Lia Jang MD [Primary Care Provider] - Visit Report Forms: Patient Portal/API <Peg Moya DO - Last Filed: 03/26/22 07:26> Cosign ED Attending Leoature Attestation: I was immediately available in the department for consultation. Documentation has been reviewed. I agree with assessment and plan.
--- NOTE | 2022-03-25 13:30 | PC.NURSE ---
did not describe symptoms of left side/arm/leg feeling funny at triage, now relays those have been ongoing x 3 days, sensation and strenght equal bilaterally, denies head pain, reports a funny sound in head for 2 weeks, fast negative, nih 0
[2022-03-25 13:37] LABS: Add Manual Diff / Slide Review NO; Basophils Absolute Auto 100 /uL (0-100); Basophils Percent Auto 1.1 % (0-2); Eosinophils Absolute Auto 100 /uL (0-450); Eosinophils Percent Auto 0.7 % (2-4); Hemoglobin 14.9 g/dL (12.0-16.0); Lymphocytes Absolute Auto 1700 /uL (1100-4500); Lymphocytes Percent Auto 17.9 % (25-40); Mean Corpuscular HGB Conc 33.8 % (30-36); Mean Corpuscular Volume 94.8 fL (80-100); Monocytes Absolute Auto 400 /uL (0-900); Monocytes Percent Auto 3.9 % (3-14); Neutrophils Absolute Auto 7200 /uL (1500-7000); Neutrophils Percent Auto 76.4 % (50-75); Platelet Count 298 X10^3/uL (150-400); Red Blood Cell Count 4.64 X10^6/uL (4.0-5.2); Red Cell Distribution Width 12.7 % (11.6-14.8); White Blood Cell Count 9.5 X10^3/uL (4.5-11.0)
[2022-03-25] MEDS: SODIUM CHLORIDE 0.9% 1,000 ML 1000 ML IV (13:39)
[2022-03-25 13:47] LABS: INR 1.1 (0.9-1.3); Prothrombin Time 12.2 SECONDS (10.1-12.7)
[2022-03-25 13:50] LABS: PTT Partial Thromboplastin Tim 34 SECONDS (26-36)
[2022-03-25 13:52] LABS: COVID19 -Nasal RAPID Negative (Negative)
[2022-03-25 13:57] LABS: Magnesium 2.1 mg/dL (1.6-2.3)
[2022-03-25 13:58] LABS: Alanine Aminotransferase 45 IU/L (<35); Albumin 4.9 g/dL (3.5-5.0); Albumin Globulin Ratio 1.2 (1.0-2.8); Alkaline Phosphatase 97 U/L (38-126); Aspartate Aminotransferase 54 IU/L (14-36); BUN Creatinine Ratio 17.5 (6-22); Bilirubin Total 1.7 mg/dL (0.2-1.3); Blood Urea Nitrogen 14 mg/dL (7-17); Calcium 9.4 mg/dL (8.4-10.2); Carbon Dioxide 27 mmol/L (22-32); Chloride 100 mmol/L (98-107); Estimated Glomerular Filt Rate > 60 mL/min (>60); Globulin 4.1 g/dL (1.7-4.1); Glucose 119 mg/dL (80-110); Potassium 5.2 mmol/L (3.4-5.1); Sodium 137 mmol/L (137-145)
[2022-03-25 14:02] LABS: HEMOLYSIS 277 (0-50)
--- NOTE | 2022-03-25 14:14 | DI.MRI.S_ITS ---
PROCEDURE: MR HEAD/BRAIN WO CON INDICATIONS: left temporal throbbing x1 week, numbness on LT TECHNIQUE: Noncontrast axial T1 spin echo, axial T2 fast spin echo, sagittal and axial FLAIR, coronal T2 fast spin echo, axial gradient echo, axial diffusion and ADC through the brain. COMPARISON: None. FINDINGS: Image quality: Excellent. CSF Spaces: Basal cisterns are patent. No extra-axial fluid collections. Ventricles are normal in size and shape. Brain: No intracranial masses or hemorrhage. Ga/white matter interface is normal. Brainstem appears normal. Diffusion-weighted images demonstrate no acute infarct. Normal intravascular flow voids are present. 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 Orbits appear normal. Sinuses: Sinuses and mastoids are clear. IMPRESSION: Unremarkable MRI of the brain without acute infarct, hemorrhage or mass lesion Approved by: Valeriy Bridges M.D. on 03/25/2022 at 14:15
[2022-03-25 14:27] LABS: Appearance Urine UA CLEAR; Bilirubin Urine UA NEGATIVE (NEGATIVE); Color Urine UA YELLOW; Glucose Urine UA NEGATIVE (Negative); Ketones Urine UA NEGATIVE (NEGATIVE); Leukocyte Esterase Urine UA NEGATIVE (NEGATIVE); Nitrite Urine UA NEGATIVE (Negative); Occult Blood Urine UA TRACE-LYSED (Negative); Protein Urine UA NEGATIVE (Negative); Specific Gravity Urine UA <=1.005 (1.000-1.035); Urobilinogen Urine UA 0.2 E.U./dL (0.2)
[2022-03-25 14:30] LABS: Bacteria Urine None Seen; Culture Indicated Urine Cult Not Indicated; RBC Urine None Seen (0-5/HPF); Urine Comments Microscopic Normal; WBC Urine None Seen (0-5/HPF)
[2022-03-25 14:38] LABS: Lactate (Lactic Acid) 1.3 mmol/L (0.7-2.1)
[2022-03-25 14:42] LABS: C-Reactive Protein Quant < 0.5 mg/dL (<1.0)
[2022-03-25 14:48] LABS: Erythrocyte Sedimentation Rate 5 MM/HR (0-20)
[2022-03-25 14:57] LABS: Procalcitonin < 0.03 ng/mL (<0.5)
--- NOTE | 2022-03-25 15:30 | DI.US.S_ITS ---
PROCEDURE: US ABDOMEN LIMITED INDICATIONS: gallstones? elevated T.bili TECHNIQUE: Real-time focused scanning was performed of the abdomen, with image documentation. COMPARISON: None. FINDINGS: The liver is normal in size and demonstrates no focal lesions. No findings of gallstones or sludge are seen. The gallbladder wall is not thickened, measuring 3 mm or less. No specific pericholecystic fluid is seen. The sonographic Loredo sign is negative. There is no biliary dilatation, the common bile duct measures 2-3 mm. No significant pancreatic abnormality is seen on these images. The visualized right kidney is unremarkable, without hydronephrosis. Overall scan quality is limited by prominent bowel gas and small acoustic windows between the ribs. IMPRESSION: The gallbladder demonstrates a normal sonographic appearance. No biliary dilatation is seen. Dictated by: Timo Louise M.D. on 03/25/2022 at 16:14 Approved by: Timo Louise M.D. on 03/25/2022 at 16:15
[2022-03-25] MEDS: ACETAMINOPHEN 325 MG TABLET 975 MG PO (15:56)
[2022-03-25] MEDS: diphenhydrAMINE 50 MG/ML VIAL 25 MG IV (15:57)
[2022-03-25] MEDS: DEXAMETHASONE 10 MG/ML VIAL IV (15:57)
[2022-03-25] MEDS: ONDANSETRON 4 MG/2 ML INJ IV (15:57)
[2022-03-25] MEDS: methocarbamoL 500 MG TABLET PO (16:31)
== END 2022-03-25 17:40 | disposition home or self-care (01) ==
PROVIDERS: Emergency Provider Nurse Practitioner Critical Care Medicine; PCP Internal Medicine
DX: G43.909 Migraine, unspecified, not intractable, without status migrainosus (principal); I48.91 Unspecified atrial fibrillation; Z79.01 Long term (current) use of anticoagulants; I10 Essential (primary) hypertension; Z20.822 Contact with and (suspected) exposure to COVID-19
CPT/HCPCS: 36415; 70450; 70496; 70498; 70551; 76705; 80053; 81001; 83605; 83735; 84145; 85025; 85610; 85651; 85730; 86140; 87635; 93005; 93010; 96361; 96374; 96375; 99285; C9803; J1100; J1200; J2405